=== PATIENT | male | born 1995 | race African-American/Black ===

== ENCOUNTER 2016-04-07 14:00 | Emergency (ER) | payer BC ==
[~2016-04-07] VITALS: Ht 170.2 cm; Wt 55.0 kg
[2016-04-07 14:06] VITALS: BP 131/67; PULSE 82; RESP 14; TEMP 98.2; O2SAT 98
--- NOTE | 2016-04-07 14:45 | PD ---
HPI Chief Complaint: Complaint Time Seen by Provider: 14:44 Travel History International Travel<30 days: No Contact w/Intl Traveler<30days: No Traveled to known affect area: No History of Present Illness HPI 20-year-old male presents to the emergency Department with complaint of a red rash to his genital area that has subsided. The rash only lasted a couple days and went away more than a week ago. Denies rash at this time. He says he has had itching to his genital area and is concerned of the itching. He denies penile drainage, lesions. Denies dysuria. Denies penile pain, testicular pain , testicular swelling. Denies abdominal pain, pelvic pain, nausea, vomiting. Denies fever, chills. Has not taken any medications or tried any treatments to alleviate his symptoms. No known aggravating or relieving factors. No other modifying factors or associated signs and symptoms. Review of Systems Except as stated in HPI: all other systems reviewed are Neg Physical Exam Narrative GENERAL: Well-nourished, well-developed male patient, in no acute distress; afebrile, nontoxic-appearing SKIN: Warm and dry. HEAD: Atraumatic. Normocephalic. EYES: Pupils equal and round. No scleral icterus. No injection or drainage. ENT: Mucosa pink and moist. Airway patent. NECK: Trachea midline. CARDIOVASCULAR: Regular rate. RESPIRATORY: No accessory muscle use. GASTROINTESTINAL: Flat. MUSCULOSKELETAL: No obvious deformities. No clubbing. No cyanosis. No edema. NEUROLOGICAL: Awake and alert. Oriented 3. No obvious cranial nerve deficits. Motor grossly within normal limits. Normal speech. PSYCHIATRIC: Appropriate mood and affect; insight and judgment normal. Data Data Last Documented VS Vital Signs Date Time Temp Pulse Resp B/P Pulse Ox O2 Delivery O2 Flow Rate FiO2 04/07/16 14:06 98.2 82 14 131/67 98 MDM Medical Screen Exam Complete: Yes Emergency Medical Condition: No Differential Diagnosis Medical clearance, laquita itch, pubic lice Narrative Course 20-year-old male Main complaint of genital itching. Apparently he had a erythemic rash to his genital which subsided deja than a week ago. He denies penile or urinary complaints. Denies fever, chills. Patient is afebrile and Nontoxic-appearing. Community resources provided. Vital signs are stable and the patient is stable for outpatient follow-up and treatment. The patient has no urgent or emergent medical complaints. There is no emergent or urgent medical need at this time. I instructed the patient to follow up with their primary care provider. A medical screening exam was performed: At the time of evaluation the presenting medical condition was determined not to be of an emergent nature. The patient was given the option of receiving additional care, but declined. Patient was given options for additional community resources from which to obtain care. The Patient Has Been advised to seek medical attention for their presenting complaint. The patient has been advised to return to the ER at any time if an emergent condition develops. Primary Impression: Encounter for medical screening examination Condition: Stable Marisel Valadez Apr 07, 2016 14:44
== END 2016-04-07 15:03 | disposition left against medical advice (07) ==
LOC: NEPB 14:00
DX: L29.9 Pruritus, unspecified (principal); R21 Rash and other nonspecific skin eruption
CPT/HCPCS: 99281

== ENCOUNTER 2016-05-23 16:07 | Emergency (ER) | payer BC ==
[2016-05-23 16:08] VITALS: BP 143/68; PULSE 90; RESP 15; TEMP 97.7; O2SAT 97
[2016-05-23] MEDS ORDERED: methylPREDNISolone SOD SUCC 125 MG/2 ML VIAL IM ONE (16:45)
[2016-05-23] MEDS: RESP: ALBUTEROL 2.5 MG/IPRATROPIUM 0.5 MG NEB (SCH) INH (16:58)
[2016-05-23 17:01] VITALS: O2SAT 97
[2016-05-23] MEDS ORDERED: VENTAER INH (17:30)
[2016-05-23] MEDS ORDERED: PRED50 PO (17:30)
--- NOTE | 2016-05-23 17:30 | PD ---
HPI Chief Complaint: Respiratory Distress Time Seen by Provider: 16:45 Travel History International Travel<30 days: No Contact w/Intl Traveler<30days: No Traveled to known affect area: No History of Present Illness HPI Patient is a 20-year-old male presenting to emergency for evaluation of asthma symptoms. Patient states he ran out of his inhaler 2 days ago and with the onset of the rain and the cooler weather he's had exacerbation of his asthma symptoms. Patient denies any fever, chills, chest pain, headaches. Patient denies any other medical history at this time. [facility] Past Medical History Asthma: Yes Respiratory: Yes (asthma) Influenza Vaccination: No Past Surgical History Surgical History: No Previous Surgery Social History Alcohol Use: No Tobacco Use: No Substance Use: No Allergies-Medications (Allergen,Severity, Reaction): Coded Allergies: No Known Allergies (Unverified , 05/23/16) Review of Systems Except as stated in HPI: all other systems reviewed are Neg General / Constitutional: No: Fever, Chills HENT: No: Headaches Cardiovascular: No: Chest Pain or Discomfort Respiratory: No: Shortness of Breath, Wheezing Gastrointestinal: No: Nausea, Abdominal Pain Physical Exam Narrative GENERAL: Well-developed, well-nourished, alert Afro-[place] male. Resting comfortably in no acute distress. SKIN: Warm and dry. HEAD: Atraumatic. Normocephalic. EYES: Pupils equal and round. No scleral icterus. No injection or drainage. ENT: No nasal bleeding or discharge. Mucous membranes pink and moist. NECK: Trachea midline. No JVD. CARDIOVASCULAR: Regular rate and rhythm. No murmur appreciated. RESPIRATORY: No accessory muscle use. Clear to auscultation. Breath sounds equal bilaterally. GASTROINTESTINAL: Abdomen soft, non-tender, nondistended. Hepatic and splenic margins not palpable. MUSCULOSKELETAL: No obvious deformities. No clubbing. No cyanosis. No edema. NEUROLOGICAL: Awake and alert. No obvious cranial nerve deficits. Motor grossly within normal limits. Normal speech. PSYCHIATRIC: Appropriate mood and affect; insight and judgment normal. Data Data Last Documented VS Vital Signs Date Time Temp Pulse Resp B/P Pulse Ox O2 Delivery O2 Flow Rate FiO2 05/23/16 17:01 97 21 05/23/16 16:15 05/23/16 16:08 97.7 90 15 Orders Albuterol-Ipratropium Neb (Duoneb Neb) (05/23/16 16:45) Methylprednisolone So Succ Inj (Solumedr (05/23/16 16:45) MDM Medical Decision Making Medical Screen Exam Complete: Yes Emergency Medical Condition: Yes Interpretation(s) Vital Signs Date Time Temp Pulse Resp B/P Pulse Ox O2 Delivery O2 Flow Rate FiO2 05/23/16 17:01 97 21 05/23/16 16:15 05/23/16 16:08 97.7 90 15 143/68 97 Differential Diagnosis Bronchitis versus asthma exacerbation versus pneumonia versus other Narrative Course Patient is a 20-year-old male presenting to the emergency department for evaluation of asthma symptoms since running out of his inhaler 3 days ago. He was given DuoNeb's 3 as well as Solu-Medrol injection. His vital signs are stable, he is well oxygenated on room air. Patient will be given refills of his albuterol inhaler as well as a short course of oral steroids. He was encouraged to follow-up with his primary care provider return to emergency department for any new or worsening symptoms. Patient verbalized understanding of these instructions. Patient is stable for discharge. Diagnosis Primary Impression: Asthma exacerbation Referrals: Primary Care Physician Patient Instructions: Asthma (ED), General Instructions Additional Instructions: Follow-up with your primary doctor Use medications as directed Return to emergency department for any new or worsening symptoms Med/Other Pt SpecificInfo: Prescription(s) given Scripts Prednisone 50 Mg Tab50 Mg PO DAILY #5 TAB Ref 0 Prov:Maral Hogan 05/23/16 Albuterol 18 GM Inh (Ventolin Hfa 18 GM Inh)90 Mcg/Act Aer2 Puff INH Q4-6H PRN ( SHORTNESS OF BREATH) #1 INHALER Ref 0 Prov:Maral Hogan 05/23/16 Disposition: 01 DISCHARGE HOME Condition: Stable Maral Hogan May 23, 2016 17:30
== END 2016-05-23 18:02 | disposition home or self-care (01) ==
LOC: NETRI 16:07
DX: J45.901 Unspecified asthma with (acute) exacerbation (principal)
CPT/HCPCS: 94640; 94664; 96372; 99284; J2930

== ENCOUNTER 2016-06-12 23:05 | Emergency (ER) | payer BC ==
[~2016-06-12] VITALS: Ht 170.2 cm; Wt 55.0 kg
[~2016-06-12 23:05] MED LIST: PRED50 PO; VENTAER INH
[2016-06-12 23:07] VITALS: BP 168/80; PULSE 98; RESP 20; TEMP 98.3; O2SAT 100
[2016-06-12 23:53] VITALS: BP 144/66; PULSE 90; RESP 20; O2SAT 100
[2016-06-13 00:14] LABS: AUTOMATED NEUTROPHIL # 4.7 TH/MM3 (1.8-7.7); BASOPHIL # 0.1 TH/MM3 (0-0.2); BASOPHIL % 0.8 % (0.0-2.0); EOSINOPHIL # 0.1 TH/MM3 (0-0.4); EOSINOPHIL % 1.1 % (0.0-4.0); HEMATOCRIT 42.7 % (39.0-51.0); HEMO FLAGS DIFF FINAL; LYMPH % 22.5 % (9.0-44.0); LYMPHOCYTE # 1.5 TH/MM3 (1.0-4.8); MEAN CELL VOLUME 84.6 FL (80.0-100.0); MEAN CORPUSCULAR HEMOGLOBIN 29.2 PG (27.0-34.0); MEAN CORPUSCULAR HGB CONC 34.5 % (32.0-36.0); MONO % 6.4 % (0.0-8.0); NEUT % 69.2 % (16.0-70.0); PLATELET COUNT 218 TH/MM3 (150-450); RED BLOOD COUNT 5.04 MIL/MM3 (4.50-5.90); RED CELL DISTRIBUTION WIDTH 13.3 % (11.6-17.2); WHITE BLOOD COUNT 6.8 TH/MM3 (4.0-11.0)
[2016-06-13] MEDS ORDERED: SODIUM CHLOR 0.9% 1000 ML INJ 1,000 ML IV ONE (00:15)
[2016-06-13] MEDS ORDERED: ONDANSETRON HCL 4 MG/2 ML VIAL IV ONE (00:15)
[2016-06-13 00:26] LABS: BLOOD, URINE NEG (NEG); GLUCOSE,URINE NEG (NEG); KETONE, URINE NEG (NEG); NITRITE,URINE NEG (NEG); PH, URINE 7.5 (5.0-8.5); SQUAMOUS EPITHELIAL CELL URINE <1 /hpf (0-5); URINE COLOR COLORLESS (YELLW/STRAW)
[2016-06-13 00:31] LABS: COMMENT (UR) CULT NOT INDICATED; CULTURE IF INDICATED CULT NOT INDICATED
--- NOTE | 2016-06-13 00:31 | RADRPT ---
EXAM DATE/TIME: 06/13/2016 00:03 [place] COMPARISON: No previous studies available for comparison. INDICATIONS : Shortness of breath. MEDICAL HISTORY : Asthma. SURGICAL HISTORY : None. ENCOUNTER: Initial ACUITY: 1 day PAIN SCORE: 0/10 LOCATION: Bilateral chest FINDINGS: A single view of the chest demonstrates the lungs to be symmetrically aerated without evidence of mas s, infiltrate or effusion. The cardiomediastinal contours are unremarkable. Osseous structures are intact. CONCLUSION: Normal examination. Curry Ruiz Jr., MD on June 13, 2016 at 0:29 Board Certified Radiologist. This report was verified electronically.
[2016-06-13 00:33] LABS: BICARBONATE 26.3 MEQ/L (21.0-32.0); POTASSIUM 3.1 MEQ/L (3.5-5.1)
[2016-06-13] MEDS ORDERED: DOXY100C PO (01:48)
[2016-06-13] MEDS ORDERED: PRED20 PO (01:48)
--- NOTE | 2016-06-13 01:48 | PD ---
HPI Chief Complaint: Respiratory Distress Time Seen by Provider: 23:54 Travel History International Travel<30 days: No Contact w/Intl Traveler<30days: No Traveled to known affect area: No History of Present Illness HPI The patient is a 20 year old male who presents to the [facility] emergency department with a history of cough, congestion that began a week ago. He reports that the cough is productive of a clear to yellow sputum. He reports that he has had nasal congestion associated with this. He reports that he has had increased chest tightness and wheezing. He reports that he had an episode of today where he had used his inhaler 4 times [id number]. The patient reports that he had chest tightness associated with this. He reports that he had tingling in his hands and feet and around his mouth. The patient reports that he had a dry mouth prior to arrival and one episode of vomiting. He reports that he continues to have nausea. The patient denies any known recent fevers, neck pain, abdominal pain, diarrhea, urinary symptoms, or neurologic symptoms. [facility] Past Medical History Narrative Medical The patient's past medical history is significant for asthma. Asthma: Yes Respiratory: Yes (asthma) Tetanus Vaccination: Unknown Influenza Vaccination: No Past Surgical History Narrative Surgical The patient's past surgical history is reportedly none. Surgical History: No Previous Surgery Social History Alcohol Use: No Tobacco Use: No Substance Use: No Allergies-Medications (Allergen,Severity, Reaction): Coded Allergies: No Known Allergies (Unverified , 06/12/16) Reported Meds & Prescriptions Reported Meds & Active Scripts Active Ventolin Hfa 18 GM Inh (Albuterol Sulfate) 90 Mcg/Act Aer 2 Puff INH Q4-6H PRN Review of Systems Except as stated in HPI: all other systems reviewed are Neg General / Constitutional: No: Fever Eyes: No: Visual changes HENT: Positive: Congestion, No: Headaches Cardiovascular: Positive: Chest Pain or Discomfort (chest tightness), Dyspnea on exertion Respiratory: Positive: Cough, Shortness of Breath Gastrointestinal: No: Abdominal Pain Genitourinary: No: Dysuria Musculoskeletal: No: Pain Skin: No Rash Neurologic: No: Weakness Psychiatric: No: Depression Endocrine: No: Polydipsia Hematologic/Lymphatic: No: Easy Bruising Physical Exam Narrative General: The patient is a well-developed well-nourished male in no acute distress. O2 saturation 100% on room air. Head and Neck exam: Head is normocephalic atraumatic. Eyes: EOMI, pupils are equal round and reactive to light. Nose: Midline septum with pink mucous membranes Mouth: Dentition unremarkable. Moist mucus membranes. Posterior oropharynx is not erythematous. No tonsillar hypertrophy. Uvula midline. Airway patent. Neck: No palpable lymphadenopathy. No nuchal rigidity. No thyromegaly. Cardiovascular: Regular rate and rhythm without murmurs, gallops, or rubs. Lungs: Clear to auscultation bilaterally. No wheezes, rhonchi, or rales. Abdomen: Soft, without tenderness to palpation in all 4 quadrants of the abdomen. No guarding, rebound, or rigidity. Normal bowel sounds are audible. Extremities: No clubbing, cyanosis, or edema. 2+ pulses in all 4 extremities. No calf tenderness on palpation. Back: No spinous process tenderness to palpation. No costovertebral angle tenderness to palpation. Neurologic Exam: Grossly nonfocal. Skin Exam: No rash noted. Intact skin that is warm and dry. Data Data Last Documented VS Vital Signs Date Time Temp Pulse Resp B/P Pulse Ox O2 Delivery O2 Flow Rate FiO2 06/12/16 23:53 90 20 144/66 100 Room Air 06/12/16 23:07 98.3 Orders Electrocardiogram (06/12/16 23:55) Chest, Single Ap (06/12/16 23:55) Complete Blood Count With Diff (06/12/16 23:55) Basic Metabolic Panel (Bmp) (06/12/16 23:55) Urinalysis - C+S If Indicated (06/12/16 23:55) D-Dimer (06/12/16 23:55) Iv Access Insert/Monitor (06/12/16 23:55) Ecg Monitoring (06/12/16 23:55) Oximetry (06/12/16 23:55) Drug Screen, Random Urine (06/12/16 23:55) Sodium Chlor 0.9% 1000 Ml Inj (Ns 1000 M (06/13/16 00:15) Ondansetron Inj (Zofran Inj) (06/13/16 00:15) Labs Laboratory Tests Test 06/13/16 00:00 White Blood Count 6.8 TH/MM3 Red Blood Count 5.04 MIL/MM3 Hemoglobin 14.7 GM/DL Hematocrit 42.7 % Mean Corpuscular Volume 84.6 FL Mean Corpuscular Hemoglobin 29.2 PG Mean Corpuscular Hemoglobin 34.5 % Concent Red Cell Distribution Width 13.3 % Platelet Count 218 TH/MM3 Mean Platelet Volume 9.9 FL Neutrophils (%) (Auto) 69.2 % Lymphocytes (%) (Auto) 22.5 % Monocytes (%) (Auto) 6.4 % Eosinophils (%) (Auto) 1.1 % Basophils (%) (Auto) 0.8 % Neutrophils # (Auto) 4.7 TH/MM3 Lymphocytes # (Auto) 1.5 TH/MM3 Monocytes # (Auto) 0.4 TH/MM3 Eosinophils # (Auto) 0.1 TH/MM3 Basophils # (Auto) 0.1 TH/MM3 CBC Comment DIFF FINAL Differential Comment D-Dimer Quantitative (PE/DVT) 0.20 MG/L FEU Urine Color COLORLESS Urine Turbidity CLEAR Urine pH 7.5 Urine Specific [place] 1.000 Urine Protein NEG mg/dL Urine Glucose (UA) NEG mg/dL Urine Ketones NEG mg/dL Urine Occult Blood NEG Urine Nitrite NEG Urine Bilirubin NEG Urine Urobilinogen LESS THAN 2.0 MG/DL Urine Leukocyte Esterase NEG Urine WBC LESS THAN 1 /hpf Urine Squamous Epithelial <1 /hpf Cells Microscopic Urinalysis Comment CULT NOT INDICATED Sodium Level 138 MEQ/L Potassium Level 3.1 MEQ/L Chloride Level 103 MEQ/L Carbon Dioxide Level 26.3 MEQ/L Anion Gap 9 MEQ/L Blood Urea Nitrogen 14 MG/DL Creatinine 1.00 MG/DL Estimat Glomerular Filtration 115 ML/MIN Rate Random Glucose 102 MG/DL Calcium Level 9.4 MG/DL [facility] Medical Decision Making Medical Screen Exam Complete: Yes Emergency Medical Condition: Yes Medical Record Reviewed: Yes Interpretation(s) Last Impressions Chest X-Ray 06/12/16 0471 Signed Impressions: Service Date/Time: Monday, June 13, 2016 00:03 - CONCLUSION: Normal examination. Curry Ruiz Jr., MD Differential Diagnosis Asthma exacerbation, versus pneumonia, versus bronchitis, versus anxiety disorder Narrative Course During the course of the patients emergency department visit, the patients history, examination, and differential diagnosis were reviewed with the patient. The patient had IV access obtained and blood work sent for analysis. The patient was placed on a rn cardiac rehab with oximetry and blood pressure monitoring. An EKG was done on arrival. The patient's EKG shows a sinus rhythm with a short MA interval, heart rate of 87, no acute ST segment elevation. The patient was provided normal saline 1 L IV fluid bolus, Zofran 4 mg IV. The patients laboratory studies were reviewed and remarkable for a CBC that is within normal limits, BMP is remarkable for a potassium 3.1 which was supplemented orally, d-dimer 0.20 decreasing the likelihood of pulmonary embolism in this patient with no other significant risk factors. Urinalysis is unremarkable. Radiology studies were reviewed and remarkable for a chest x-ray that is unremarkable. The patient will be discharged home with a prescription for prednisone and doxycycline for bronchitis. The patient is resting comfortably and feels better, is alert and in no distress. The patients results and examination findings were discussed with the patient. The repeat examination is unremarkable and benign. The history, exam, diagnostic testing, and current condition do not suggest any significant pathology to warrant further testing, continued ED treatment, admission, or surgical evaluation at this point. The vital signs have been stable. The patient does not have uncontrollable pain, intractable vomiting, or other significant symptoms. The patient's condition is stable and appropriate for discharge. The patient will pursue further outpatient evaluation with a primary care physician or other designated or consulting physician as indicated in the discharge instructions. The patient expressed understanding and was agreeable with this plan. Diagnosis Primary Impression: Asthma exacerbation Additional Impression: Bronchitis Referrals: Primary Care Physician 3 days Patient Instructions: Acute Bronchitis (ED), Asthma (ED), General Instructions Med/Other Pt SpecificInfo: Prescription(s) given Scripts Prednisone 20 Mg Tab20 Mg PO BID 5 Days Ref 0 Prov:Edie Santa MD 06/13/16 Doxycycline Hyclate 100 Mg [id number] Mg PO BID #20 CAP Ref 0 Prov:Edie Santa MD 06/13/16 Disposition: DISCHARGE HOME Condition: Stable Edie Santa MD Jun 13, 2016 01:48
[2016-06-13] MEDS ORDERED: POTASSIUM CHLORIDE 25 MEQ EFFERVESCENT TAB PO ONE (02:00)
[2016-06-13 02:31] VITALS: BP 117/56
[2016-06-13 06:38] LABS: AMPHETAMINE, URINE NEG (NEG); BARBITURATES, URINE NEG (NEG); COCAINE, URINE NEG (NEG)
--- NOTE | 2016-06-13 10:56 | EKG ---
Date Performed: 06/12/2016 Time Performed: 23:59:34 PTAGE: 20 years EKG: Sinus rhythm WITH SHORT VT INTERVAL LEFT ATRIAL ENLARGEMENT POSSIBLE RIGHT VENTRICULAR CONDUCTION DELAY LEFT VENT RICULAR HYPERTROPHY ABNORMAL ECG NO PREVIOUS TRACING DOCTOR: Miranda Rodrigues Interpretating Date/Time 06/13/2016 10:54:23
== END 2016-06-13 02:32 | disposition home or self-care (01) ==
LOC: NEPC 23:05
DX: J45.901 Unspecified asthma with (acute) exacerbation (principal); J40 Bronchitis, not specified as acute or chronic; R94.31 Abnormal electrocardiogram [ECG] [EKG]; R11.0 Nausea
CPT/HCPCS: 71010; 80048; 80307; 81001; 85025; 85379; 93005; 96361; 96374; 99284; J2405; J7030

== ENCOUNTER 2016-06-16 21:16 | Emergency (ER) | payer BC ==
[~2016-06-16] VITALS: Ht 170.2 cm; Wt 55.0 kg
[~2016-06-16 21:16] MED LIST changes: +DOXY100C PO; +PRED20 PO; -PRED50 PO
[2016-06-16 21:19] VITALS: BP 148/75; PULSE 91; RESP 16; TEMP 98.6; O2SAT 100
--- NOTE | 2016-06-16 21:24 | PD ---
Physical Exam Date Seen by Provider: Jun 16, 2016 Time Seen by Provider: 21:23 Narrative 20 year old male presents to the emergency department for evaluation of shortness of breath for the past few weeks. He has history of asthma. VSS. Patient awaiting bed placement. Data Data Last Documented VS Vital Signs Date Time Temp Pulse Resp B/P Pulse Ox O2 Delivery O2 Flow Rate FiO2 06/16/16 21:19 98.6 91 16 148/75 100 Room Air MDM Supervised Visit with JEFF: Lynn Coker Jun 16, 2016 21:24
--- NOTE | 2016-06-16 22:42 | PD ---
HPI Chief Complaint: Respiratory Symptoms Time Seen by Provider: 22:30 Travel History International Travel<30 days: No Contact w/Intl Traveler<30days: No Traveled to known affect area: No History of Present Illness HPI 20-year-old male with history of asthma presents for evaluation. For the past few weeks he has had intermittent dyspnea. He was seen here on June 13 and at that time was complaining of dyspnea and cough action, congestion. He had a full workup including lab work, d-dimer, EKG, chest x-ray which were all essentially unremarkable except for mild hypokalemia. He was given oral potassium at that time. He was discharged with prednisone and doxycycline which she has been using along with albuterol inhaler. He presents today because he still has occasional dyspnea. Symptoms seem to come on out of nowhere. 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 He has no pain. The cough and congestion seem to be getting better. No fevers or chills. In addition he complains of increased urgency to urinate for the past year. He reports that essentially he just feels like he has to urinate more frequently and this is been ongoing for 1 year. He denies any dysuria, abdominal pain, testicular or scrotal pain, urethral discharge. No other complaints. PFSH Past Medical History Asthma: Yes Respiratory: Yes (ASTHMA) Immunizations Current: Yes Tetanus Vaccination: Unknown Influenza Vaccination: Yes Social History Alcohol Use: No Tobacco Use: No Substance Use: No Allergies-Medications (Allergen,Severity, Reaction): Coded Allergies: No Known Allergies (Unverified , 06/16/16) Reported Meds & Prescriptions Reported Meds & Active Scripts Active Medrol Dosepak (Methylprednisolone) 4 Mg Dspk 4 Mg PO DIRECTED Per Pharmacist direction Prednisone 20 Mg Tab 20 Mg PO BID 5 Days Doxycycline Hyclate 100 Mg Cap 100 Mg PO BID Review of Systems Except as stated in HPI: all other systems reviewed are Neg Physical Exam Narrative GENERAL: Well-developed well-nourished male in no acute distress SKIN: Warm and dry. HEAD: Atraumatic. Normocephalic. EYES: Pupils equal and round. No scleral icterus. No injection or drainage. ENT: No nasal bleeding or discharge. Mucous membranes pink and moist. NECK: Trachea midline. No JVD. CARDIOVASCULAR: Regular rate and rhythm. No murmur appreciated. RESPIRATORY: No accessory muscle use. Clear to auscultation. Breath sounds equal bilaterally. GASTROINTESTINAL: Abdomen soft, non-tender, nondistended. Hepatic and splenic margins not palpable. MUSCULOSKELETAL: No obvious deformities. No edema. NEUROLOGICAL: Awake and alert. No obvious cranial nerve deficits. Motor grossly within normal limits. Normal speech. PSYCHIATRIC: Appropriate mood and affect; insight and judgment normal. Data Data Last Documented VS Vital Signs Date Time Temp Pulse Resp B/P Pulse Ox O2 Delivery O2 Flow Rate FiO2 06/16/16 21:19 98.6 91 16 148/75 100 Room Air Orders Urinalysis - C+S If Indicated (06/16/16 22:37) Albuterol-Ipratropium Neb (Duoneb Neb) (06/16/16 22:45) Labs Laboratory Tests Test 06/16/16 22:40 Urine Color LIGHT-YELLOW Urine Turbidity HAZY Urine pH 8.0 Urine Specific [place] 1.005 Urine Protein NEG mg/dL Urine Glucose (UA) NEG mg/dL Urine Ketones NEG mg/dL Urine Occult Blood NEG Urine Nitrite NEG Urine Bilirubin NEG Urine Urobilinogen LESS THAN 2.0 MG/DL Urine Leukocyte Esterase NEG Urine WBC 1 /hpf Urine Squamous Epithelial <1 /hpf Cells Urine Amorphous Sediment RARE Urine Bacteria OCC /hpf Urine Mucus FEW /lpf Microscopic Urinalysis Comment CULT NOT INDICATED MDM Medical Decision Making Medical Screen Exam Complete: Yes Emergency Medical Condition: Yes Medical Record Reviewed: Yes Differential Diagnosis Asthma, resolving bronchitis, pneumonia, spontaneous pneumothorax, pulmonary embolism Narrative Course 20-year-old male recently seen here for cough, congestion and dyspnea, history of asthma, presents with persistent intermittent dyspnea. He is currently on doxycycline, prednisone and albuterol. The cough and congestion have improved according the patient. Seen here in June 13 he had a normal x-ray of the chest , mild hypokalemia, negative d-dimer. Physical examination is unremarkable. His vital signs are normal, pulse oximetry on room air is 100%, he is not tachypneic. I suspect resolving asthma exacerbation. He is encouraged to follow-up with a primary care physician for pulmonary function tests, he may benefit from some asthma maintenance medication. He is also complaining of increased urge to urinate but has been ongoing for 1 year. Physical examination is unremarkable. He has no dysuria, abdominal pain. This may be overactive bladder syndrome. Urinalysis performed here is unremarkable. He is encouraged to follow-up with his primary care physician about this issue as well. He'll be discharged with Medrol Dosepak prescription. Diagnosis Primary Impression: Asthma Qualified Code: J45.20 - Mild intermittent asthma without complication Additional Impression: Urinary frequency Additional Instructions: Medication as prescribed. Albuterol for wheezing. Follow up with primary care physician. Return for any emergent medical conditions. Med/Other Pt SpecificInfo: Prescription(s) given Scripts Methylprednisolone Dosepak (Medrol Dosepak)4 Mg Dspk4 Mg PO DIRECTED #1 DSPK Ref 0 Per Pharmacist direction Prov:Familia Angel MD 06/16/16 Disposition: 01 DISCHARGE HOME Condition: Stable Josef Broussard Jun 16, 2016 22:42
[2016-06-16] MEDS ORDERED: RESP: ALBUTEROL 2.5 MG/IPRATROPIUM 0.5 MG NEB (SCH) INH ONE (22:45)
[2016-06-16 22:55] LABS: BACTERIA, URINE OCC /hpf; BLOOD, URINE NEG (NEG); COMMENT (UR) CULT NOT INDICATED; CULTURE IF INDICATED CULT NOT INDICATED; GLUCOSE,URINE NEG (NEG); KETONE, URINE NEG (NEG); MUCUS URINE FEW /lpf (OCC); NITRITE,URINE NEG (NEG); SQUAMOUS EPITHELIAL CELL URINE <1 /hpf (0-5); URINE COLOR LIGHT-YELLOW (YELLW/STRAW)
[2016-06-16] MEDS ORDERED: MEDR4PAK PO (22:58)
== END 2016-06-16 23:06 | disposition home or self-care (01) ==
LOC: NEPK 21:16
DX: J45.20 Mild intermittent asthma, uncomplicated (principal); R35.0 Frequency of micturition; Z87.09 Personal history of other diseases of the respiratory system
CPT/HCPCS: 81001; 94664; 99283